=== PATIENT | female | born 1965 | race Caucasian/White ===

== ENCOUNTER → 2017-09-08 | Outpatient (CLI) | payer BC ==
--- NOTE | 2017-09-08 15:15 | MAMMOGRAPHY REPORT ---
BILATERAL DIGITAL SCREENING MAMMOGRAM TOMOSYNTHESIS WITH CAD: 09/08/2017 CLINICAL HISTORY: Routine screening. TECHNIQUE: Breast tomosynthesis in addition to standard 2D mammography was performed. Current study was also evaluated with a Computer Aided Detection (CAD) system. COMPARISON: Comparison is made to exams dated: 09/05/2016 mammogram, 09/03/2015 mammogram, 4 mammogram, 08/29/2013 mammogram, 08/24/2012 mammogram, and 08/21/2011 mammogram - [facility]. BREAST COMPOSITION: The tissue of both breasts is heterogeneously dense, which may obscure small mas ses. FINDINGS: There is stable focal asymmetry in the upper outer quadrant of each breast. No new suspici ous mass, architectural distortion or cluster of microcalcifications is seen. IMPRESSION: ACR BI-RADS CATEGORY 1: NEGATIVE There is no mammographic evidence of malignancy. A 1 year screening mammogram is recommended. The pa tient will receive written notification of the results. Approximately 10% of breast cancers are not detected with mammography. A negative mammographic report should not delay biopsy if a clinically suggestive mass is present. Jade Leslie M.D. ay/:09/08/2017 14:59:33 Project Director: Maximino GATICA(R)(M), [facility] letter sent: Normal 1/2 BI-RADS Code: ACR BI-RADS Category 1: Negative
== END | disposition home or self-care (01) ==
LOC: C.MAMM 08:03
PROVIDERS: ATTEND Obstetrics & Gynecology
DX: Z12.31 Encounter for screening mammogram for malignant neoplasm of breast (principal)

== ENCOUNTER → 2018-02-04 | Outpatient (CLI) | payer BC | END | disposition home or self-care (01) | LOC: C.PAPS 12:28 | PROVIDERS: ATTEND Obstetrics & Gynecology | DX: Z01.411 Encounter for gynecological examination (general) (routine) with abnormal findings (principal); R87.612 Low grade squamous intraepithelial lesion on cytologic smear of cervix (LGSIL) ==

== ENCOUNTER 2018-06-07 07:19 | Inpatient (IN) | payer BC ==
[~2018-06-07] VITALS: Ht 165.1 cm; Wt 83.9 kg
[2018-06-07] MEDS ORDERED: METOCLOPRAMIDE HCL INJ 5 MG/ML 2 ML VIAL IV STA (07:29)
[2018-06-07] MEDS ORDERED: SODIUM CHLORIDE 0.9% 1000ML 1,000 ML IV STA (07:33)
[2018-06-07] MEDS ORDERED: HYDROmorphone INJ 1 MG/ML SYR IV STA (07:33)
--- NOTE | 2018-06-07 07:41 | EMERGENCY ROOM VISIT NOTE ---
History Report prepared by Jalen: Aleksey Love Under the Supervision of: Dr. Efra Morris M.D. First contact with patient: 07:26 Chief Complaint: GI ASSESSMENT Stated Complaint: INTESTINAL/LWR ABD PAIN/CONSTIPATION/FEVER History of Present Illness The patient is a 52 year old female who presents to the Emergency Room with complaints of constant abdominal pain beginning two days ago. The patient states that she has been having abdominal pain on the left that has since moved to her entire abdomen. She notes that she feels like she is constipated. She also complains of a fever and a small amount of blood in her stool. She reports that her fever reached a high of 101. The patient states that she had two very small bowel movements this morning which looked like they contained blood. She rates her pain as a 3/10. She notes that she has been taking ibuprofen for her symptoms, and she reports that she has not had anything since 2300 last night. The patient states that she has a history of hypertension but does not take any medication. She notes that she does not have a past history of diverticulitis and she reports that she still has her gallbladder and appendix. The patient states that she has a family history of hypertension. Source of History: patient Onset: two days ago Position: abdomen Symptom Intensity: 3/10 Timing: constant Associated Symptoms: + fevers Note: The patient also complains of blood in her stool. Review of Systems See HPI for pertinent positives & negatives. A total of 10 systems reviewed and were otherwise negative. Past Medical & Surgical Medical Problems: (1) Diverticulitis (2) Hypertension (3) Mononucleosis Family History No pertinent family history stated. Social History Smoking Status: Current Every Day Smoker Marital Status: Housing Status: lives with family Occupation Status: employed Current/Historical Medications No Active Prescriptions or Reported Meds Allergies Coded Allergies: No Known Allergies (Unverified , 06/07/18) Physical Exam Vital Signs Date Time Temp Pulse Resp B/P (MAP) Pulse Ox O2 Delivery O2 Flow Rate FiO2 06/07/18 13:01 84 20 124/81 97 Room Air 06/07/18 11:10 96 Room Air 06/07/18 10:56 81 16 154/102 96 Room Air 06/07/18 08:50 85 14 147/87 96 Room Air 06/07/18 08:03 92 06/07/18 07:22 37.5 100 18 141/91 96 Room Air Physical Exam GENERAL: Awake, alert, well-appearing, in no acute distress HENT: Normocephalic, atraumatic. Oropharynx unremarkable. EYES: Normal conjunctiva. Sclera non-icteric. NECK: Supple. No nuchal rigidity. FROM. No JVD. RESPIRATORY: Clear to auscultation. CARDIAC: Regular rate, normal rhythm. Extremities warm and well perfused. Pulses equal. ABDOMEN: Soft, non-distended. No rebound or guarding. No masses. Tender in the LLQ. RECTAL: Deferred. MUSCULOSKELETAL: Chest examination reveals no tenderness. The back is symmetrical on inspection without obvious abnormality. There is no CVA tenderness to palpation. No joint edema. LOWER EXTREMITIES: Calves are equal size bilaterally and non-tender. No edema. No discoloration. NEURO: Normal sensorium. No sensory or motor deficits noted. SKIN: No rash or jaundice noted. Medical Decision & Procedures ER Provider Diagnostic Interpretation: Radiology results as stated below per my review and radiologist interpretation: ABDOMEN AND PELVIS CT WITH IV AND ORAL CONTRAST FINDINGS: Mild dependent subsegmental bibasilar atelectasis. Fissural lymph nodes are seen adjacent to the inferior aspect of the right major fissure. Imaged inferior cardiac chambers are unremarkable. Gallbladder, liver, spleen, pancreas and adrenal glands are unremarkable. The kidneys, ureters and bladder are within normal limits. Uterus and adnexa are within normal limits. Aorta and IVC are unremarkable. Patent portal vein. Mildly prominent nonenlarged periaortic lymph nodes measure up to 7 mm in short axis. There is no bowel obstruction. Oral contrast extends to the rectum. There is moderate to marked circumferential wall thickening about the mid sigmoid colon with inflammation about multiple colonic diverticula. Moderate pericolonic inflammation is noted with with thickening of the peritoneal reflections. There are a few scattered foci of extraluminal air within the adjacent sigmoid mesocolon, notably image 378 series 3. No drainable fluid collections. Terminal ileum and visualized appendix appear unremarkable. Soft tissues and breast parenchyma appear unremarkable. Bones appear intact. Moderate intervertebral disc space narrowing with disc osteophyte complex relation at L4-L5. Grade 1 anterolisthesis L5 on S1 with remote bilateral pars defects. IMPRESSION: 1. Acute complicated sigmoid diverticulitis with a few foci of extra luminal air within the adjacent sigmoid mesocolon compatible with microperforation. No drainable fluid collection. 2. No bowel obstruction. 3. Chronic bilateral pars defects at L5 with grade 1 anterolisthesis L5 on S1. Electronically signed by: Escobar Rooney M.D. 06/07/2018 10:15 AM Dictated Date/Time: 06/07/2018 10:08 AM Laboratory Results 06/07/18 07:35 Red Blood Count 5.27, Mean Corpuscular Volume 85.2, Mean Corpuscular Hemoglobin 30.0, Mean Corpuscular Hemoglobin Concent 35.2, Mean Platelet Volume 11.0, Neutrophils (%) (Auto) 88.7, Lymphocytes (%) (Auto) 4.1, Monocytes (%) (Auto) 6.5, Eosinophils (%) (Auto) 0.2, Basophils (%) (Auto) 0.1, Neutrophils # (Auto) 16.80, Lymphocytes # (Auto) 0.78, Monocytes # (Auto) 1.23, Eosinophils # (Auto) 0.03, Basophils # (Auto) 0.01 06/07/18 07:35 Test 06/07/18 07:30 06/07/18 07:35 Urine Color DEB Urine Appearance TURBID (CLEAR) Urine pH 5.5 (4.5-7.5) Urine Specific [place] >= 1.030 (1.000-1.030) Urine Protein 1+ (NEG) Urine Glucose (UA) NEG (NEG) Urine Ketones 2+ (NEG) Urine Occult Blood TRACE (NEG) Urine Nitrite NEG (NEG) Urine Bilirubin NEG (NEG) Urine Urobilinogen NEG (NEG) Urine Leukocyte Esterase NEG (NEG) Urine RBC 0-4 /hpf (0-4) Urine WBC 1-5 /hpf (0-5) Urine Epithelial Cells >30 /lpf (0-5) Urine Amorphous Sediment PRESENT (NONE PRSENT) Urine Bacteria NEG (NEG) Urine Mucus PRESENT (NONE PRSENT) White Blood Count 18.93 K/uL (4.8-10.8) Red Blood Count 5.27 M/uL (4.2-5.4) Hemoglobin 15.8 g/dL (12.0-16.0) Hematocrit 44.9 % (37-47) Mean Corpuscular Volume 85.2 fL (80-100) Mean Corpuscular Hemoglobin 30.0 pg (25-34) Mean Corpuscular Hemoglobin Concent 35.2 g/dl (32-36) Platelet Count 212 K/uL (130-400) Mean Platelet Volume 11.0 fL (7.4-10.4) Neutrophils (%) (Auto) 88.7 % Lymphocytes (%) (Auto) 4.1 % Monocytes (%) (Auto) 6.5 % Eosinophils (%) (Auto) 0.2 % Basophils (%) (Auto) 0.1 % Neutrophils # (Auto) 16.80 K/uL (1.4-6.5) Lymphocytes # (Auto) 0.78 K/uL (1.2-3.4) Monocytes # (Auto) 1.23 K/uL (0.11-0.59) Eosinophils # (Auto) 0.03 K/uL (0-0.5) Basophils # (Auto) 0.01 K/uL (0-0.2) RDW Standard Deviation 41.4 fL (36.4-46.3) RDW Coefficient of Variation 13.2 % (11.5-14.5) Immature Granulocyte % (Auto) 0.4 % Immature Granulocyte # (Auto) 0.08 K/uL (0.00-0.02) Anion Gap 8.0 mmol/L (3-11) Est Creatinine Clear Calc Drug Dose 90.2 ml/min Estimated GFR () 101.3 Estimated GFR (Non- 87.4 BUN/Creatinine Ratio 14.2 (10-20) Calcium Level 9.1 mg/dl (8.5-10.1) Total Bilirubin 1.4 mg/dl (0.2-1) Direct Bilirubin 0.5 mg/dl (0-0.2) Aspartate Amino Transf (AST/SGOT) 14 U/L (15-37) Alanine Aminotransferase (ALT/SGPT) 29 U/L (12-78) Alkaline Phosphatase 70 U/L (45-117) Total Protein 7.6 gm/dl (6.4-8.2) Albumin 3.4 gm/dl (3.4-5.0) Lipase 59 U/L (73-393) Labs reviewed by ED physician. Medications Administered Medications (Trade) Dose Ordered Sig/Lalito Route Start Time Stop Time Status Last Admin Dose Admin Metoclopramide HCl (Reglan Inj) 10 mg NOW STAT IV 06/07/18 07:29 06/07/18 07:31 DC 06/07/18 07:29 10 MG Sodium Chloride 1,000 ml @ 999 mls/hr Q1H1M STAT IV 06/07/18 07:33 06/07/18 08:33 DC 06/07/18 07:33 999 MLS/HR Hydromorphone HCl (Dilaudid Inj) 1 mg NOW STAT IV 06/07/18 07:33 06/07/18 07:34 DC 06/07/18 07:33 1 MG Ciprofloxacin/ Dextrose (Cipro / D5W) 400 mg NOW STAT IV 06/07/18 10:18 06/07/18 10:20 DC 06/07/18 10:18 400 MG Metronidazole (Flagyl / Nss) 500 mg NOW STAT IV 06/07/18 10:18 06/07/18 10:20 DC 06/07/18 10:18 500 MG ED Course 0726: Past medical records reviewed. The patient was evaluated in room A10. A complete history and physical examination was performed. 0805: I reevaluated and updated the patient. 0904: I rechecked the patient. 1021: I reevaluated and updated the patient. 1045: Upon reexamination the patient is stable. I discussed results and treatment plan with the patient. She verbalizes agreement and understanding. I spoke with Dr. Kidd from the [facility] Hospitalist Service. The patient will be evaluated for further management. 1100: I discussed the patient's case with Himanshu Thakkar. Medical Decision Differential diagnosis: Etiologies such as appendicitis, diverticulitis, PUD, biliary pathology, UTI, pancreatitis, obstruction, mesenteric ischemia, aortic pathology, infections, inflammatory bowel disease, renal colic, as well as others were entertained. This is a 52-year-old female who presents emergency department complaining of left lower quadrant abdominal pain she does have an elevation in her white blood cell count of 18,000. CT the abdomen pelvis is concerning for perforated diverticulitis. Patient was given Reglan as well as Dilaudid here in the emergency department. Serial abdominal examinations were performed on the patient in the emergency department and at no time to the patient exhibited surgical abdomen. The patient was started on IV Cipro as well as Flagyl. I discussed the case with surgery as well as the medicine service. Patient and family were in agreement with the treatment plan. Medication Reconcilliation Current Medication List: was personally reviewed by me Blood Pressure Screening Patient's blood pressure: Elevated blood pressure Elevated blood pressure will be monitored by hospitalist. Consults Time Called: 1020 Consulting Physician: Dr. Kidd - Hospitalist, [facility] Returned Call: 1045 I discussed the patient's case with Dr. Kidd, she has agreed to evaluate the patient for further management and care. Additional Consults: Time Called: 1057 Consulted Physician: Himanshu Martin PA-C, General Surgery, [facility] Returned Call: 1100 Additional Comments: I discussed the patient's case with Himanshu Thakkar. Impression Primary Impression: Diverticulitis Scribe Attestation The scribe's documentation has been prepared under my direction and personally reviewed by me in its entirety. I confirm that the note above accurately reflects all work, treatment, procedures, and medical decision making performed by me. Departure Information Dispostion Being Evaluated By Hospitalist Prescriptions No Active Prescriptions or Reported Meds Referrals No Doctor, Assigned (PCP) Patient Instructions My [facility]
[2018-06-07] MEDS ORDERED: OPTIRAY 320 IV PRN (07:45)
[2018-06-07 07:50] LABS: BASO % 0.1 %; BASO ABS # 0.01 K/uL (0-0.2); EOS % 0.2 %; EOS ABS # 0.03 K/uL (0-0.5); HEMATOCRIT 44.9 % (37-47); HEMOGLOBIN 15.8 g/dL (12.0-16.0); IG# 0.08 K/uL (0.00-0.02); LYMPH % 4.1 %; LYMPH ABS # 0.78 K/uL (1.2-3.4); MEAN CELL VOLUME 85.2 fL (80-100); MEAN CORPUSCULAR HGB CONC 35.2 g/dl (32-36); MONO % 6.5 %; MONO ABS # 1.23 K/uL (0.11-0.59); NEUT % 88.7 %; PLATELET COUNT 212 K/uL (130-400); RED CELL DISTRIBUTION WIDTH CV 13.2 % (11.5-14.5); RED CELL DISTRIBUTION WIDTH SD 41.4 fL (36.4-46.3); WHITE BLOOD COUNT 18.93 K/uL (4.8-10.8)
[2018-06-07 08:10] LABS: ALBUMIN 3.4 gm/dl (3.4-5.0); CALCIUM 9.1 mg/dl (8.5-10.1); CREATININE 0.78 mg/dl (0.60-1.20); TOTAL PROTEIN 7.6 gm/dl (6.4-8.2)
--- NOTE | 2018-06-07 10:16 | DIAGNOSTIC IMAGING REPORT ---
ABDOMEN AND PELVIS CT WITH IV AND ORAL CONTRAST CT DOSE: 764.41 mGy.cm HISTORY: Acute left lower quadrant abdominal pain Pt c/o LLQ abd pain TECHNIQUE: Multiaxial CT images of the abdomen and pelvis were performed following the use of intravenous and oral contrast. A dose lowering technique was utilized adhering to the principles of ALARA. COMPARISON STUDY: None. FINDINGS: Mild dependent subsegmental bibasilar atelectasis. Fissural lymph nodes are seen adjacent to the inferior aspect of the right major fissure. Imaged inferior cardiac chambers are unremarkable. Gallbladder, liver, spleen, pancreas and adrenal glands are unremarkable. The kidneys, ureters and bladder are within normal limits. Uterus and adnexa are within normal limits. Aorta and IVC are unremarkable. Patent portal vein. Mildly prominent nonenlarged periaortic lymph nodes measure up to 7 mm in short axis. There is no bowel obstruction. Oral contrast extends to the rectum. There is moderate to marked circumferential wall thickening about the mid sigmoid colon with inflammation about multiple colonic diverticula. Moderate pericolonic inflammation is noted with with thickening of the peritoneal reflections. There are a few scattered foci of extraluminal air within the adjacent sigmoid mesocolon, notably image 378 series 3. No drainable fluid collections. Terminal ileum and visualized appendix appear unremarkable. Soft tissues and breast parenchyma appear unremarkable. Bones appear intact. Moderate intervertebral disc space narrowing with disc osteophyte complex relation at L4-L5. Grade 1 anterolisthesis L5 on S1 with remote bilateral pars defects. IMPRESSION: 1. Acute complicated sigmoid diverticulitis with a few foci of extra luminal air within the adjacent sigmoid mesocolon compatible with microperforation. No drainable fluid collection. 2. No bowel obstruction. 3. Chronic bilateral pars defects at L5 with grade 1 anterolisthesis L5 on S1. Electronically signed by: Escobar Rooney M.D. 06/07/2018 10:15 AM Dictated Date/Time: 06/07/2018 10:08 AM
[2018-06-07] MEDS ORDERED: CIPROFLOXACIN 400MG / 200ML D5W IV STA (10:18)
[2018-06-07] MEDS ORDERED: METRONIDAZOLE 500MG / 100ML NSS IV STA (10:18)
[2018-06-07 11:10] VITALS: O2SAT 96; Ht 165.1 cm; Wt 83.9 kg
[2018-06-07] MEDS ORDERED: MAGNESIUM HYDROXIDE SUSP 30 ML UDC PO PRN (11:15)
[2018-06-07] MEDS ORDERED: MoRPHine SULFATE 2 MG/ML CARP IV PRN (11:15)
[2018-06-07] MEDS ORDERED: ONDANSETRON INJ 2 MG/ML 2 ML VIAL IV PRN (11:15)
[2018-06-07] MEDS ORDERED: ACETAMINOPHEN 325 MG TAB PO PRN (11:15)
--- NOTE | 2018-06-07 11:21 | History and Physical ---
History & Physical Date & Time of Service: Jun 07, 2018 at 11:12 Chief Complaint: Intestinal/Lwr Abd Pain/Constipation/Fever Primary Care Physician: Lizzie Driver C.R.NAaliyahP History of Present Illness Source: patient 52 y/o F c/o abd pain. Pt states she started having LLQ abd pain on Thursday. It continued to worsen over the last few days and has moved to her entire lower abd. It does not radiate to the back. She has passed a few small pieces of stool, but her last regular bowel movement was on Thursday. No n/v. She has taken some PO, but has had no appetite due to the abd pain. She has never had pain like this prior. Nothing was helping her pain so she came to the ED. She tried taking ibuprofen without effect. Pt denies fever, SOB, chest pain, LE pain or swelling. She does feel bloated. She did note a small amount of blood in the small pieces of stool passed. Pt was given cipro/flagyl, IVF, and pain medications in the ED. She is still having pain, but it is overall improved. Past Medical/Surgical History Medical Problems: (1) Diverticulitis (2) Hypertension (3) Mononucleosis Social History Smoking Status: Current Every Day Smoker (5-6 cigs/day, maybe 2/day during this acute illness) Alcohol Use: occasionally (1-2 times per week) Drug Use: none Marital Status: Occupational Status: employed Allergies Coded Allergies: No Known Allergies (Unverified , 06/07/18) Home Medications No Active Prescriptions or Reported Meds Review of Systems Pertinent positives and negatives reviewed in HPI--all others negative Physical Exam Vital Signs Date Time Temp Pulse Resp B/P (MAP) Pulse Ox O2 Delivery O2 Flow Rate FiO2 06/07/18 10:56 81 16 154/102 96 Room Air 06/07/18 08:50 85 14 147/87 96 Room Air 06/07/18 08:03 92 06/07/18 07:22 37.5 100 18 141/91 96 Room Air General Appearance: WD/WN, no apparent distress Head: normocephalic, atraumatic Eyes: normal inspection, sclerae normal Respiratory/Chest: normal breath sounds, no respiratory distress Cardiovascular: regular rate, rhythm, no edema Abdomen/GI: soft, + tenderness (lower abd), + distended Extremities/Musculoskelatal: no calf tenderness, no pedal edema Neurologic/Psych: alert, normal mood/affect, oriented x 3 Skin: normal color, warm/dry Diagnostics Laboratory Results Results Past 24 Hours Test 06/07/18 07:30 06/07/18 07:35 Range/Units Urine Color DEB Urine Appearance TURBID CLEAR Urine pH 5.5 4.5-7.5 Urine Specific [place] >= 1.030 1.000-1.030 Urine Protein 1+ NEG Urine Glucose (UA) NEG NEG Urine Ketones 2+ NEG Urine Occult Blood TRACE NEG Urine Nitrite NEG NEG Urine Bilirubin NEG NEG Urine Urobilinogen NEG NEG Urine Leukocyte Esterase NEG NEG Urine RBC 0-4 0-4 /hpf Urine WBC 1-5 0-5 /hpf Urine Epithelial Cells >30 0-5 /lpf Urine Amorphous Sediment PRESENT NONE PRSENT Urine Bacteria NEG NEG Urine Mucus PRESENT NONE PRSENT White Blood Count 18.93 4.8-10.8 K/uL Red Blood Count 5.27 4.2-5.4 M/uL Hemoglobin 15.8 12.0-16.0 g/dL Hematocrit 44.9 37-47 % Mean Corpuscular Volume 85.2 80-100 fL Mean Corpuscular Hemoglobin 30.0 25-34 pg Mean Corpuscular Hemoglobin Concent 35.2 32-36 g/dl Platelet Count 212 130-400 K/uL Mean Platelet Volume 11.0 7.4-10.4 fL Neutrophils (%) (Auto) 88.7 % Lymphocytes (%) (Auto) 4.1 % Monocytes (%) (Auto) 6.5 % Eosinophils (%) (Auto) 0.2 % Basophils (%) (Auto) 0.1 % Neutrophils # (Auto) 16.80 1.4-6.5 K/uL Lymphocytes # (Auto) 0.78 1.2-3.4 K/uL Monocytes # (Auto) 1.23 0.11-0.59 K/uL Eosinophils # (Auto) 0.03 0-0.5 K/uL Basophils # (Auto) 0.01 0-0.2 K/uL RDW Standard Deviation 41.4 36.4-46.3 fL RDW Coefficient of Variation 13.2 11.5-14.5 % Immature Granulocyte % (Auto) 0.4 % Immature Granulocyte # (Auto) 0.08 0.00-0.02 K/uL Sodium Level 135 136-145 mmol/L Potassium Level 4.0 3.5-5.1 mmol/L Chloride Level 103 98-107 mmol/L Carbon Dioxide Level 24 21-32 mmol/L Anion Gap 8.0 3-11 mmol/L Blood Urea Nitrogen 11 7-18 mg/dl Creatinine 0.78 0.60-1.20 mg/dl Est Creatinine Clear Calc Drug Dose 90.2 ml/min Estimated GFR () 101.3 Estimated GFR (Non- 87.4 BUN/Creatinine Ratio 14.2 10-20 Random Glucose 123 70-99 mg/dl Calcium Level 9.1 8.5-10.1 mg/dl Total Bilirubin 1.4 0.2-1 mg/dl Direct Bilirubin 0.5 0-0.2 mg/dl Aspartate Amino Transf (AST/SGOT) 14 15-37 U/L Alanine Aminotransferase (ALT/SGPT) 29 12-78 U/L Alkaline Phosphatase 70 45-117 U/L Total Protein 7.6 6.4-8.2 gm/dl Albumin 3.4 3.4-5.0 gm/dl Lipase 59 73-393 U/L Diagnostic Radiology CT AP: 1. Acute complicated sigmoid diverticulitis with a few foci of extra luminal air within the adjacent sigmoid mesocolon compatible with microperforation. No drainable fluid collection. 2. No bowel obstruction. 3. Chronic bilateral pars defects at L5 with grade 1 anterolisthesis L5 on S1. Impression Assessment and Plan 52 y/o F who was admitted on 06/07 for acute diverticulitis Diverticulitis: no prior hx Noted to have microperf on CT AP Surgery c/s pending Cipro/flagyl, IVF NPO with sips WBC elevated, afebrile ?? HTN: States BP was elevated on an acute visit to PCP in January for flu, but did not f/u for recheck Monitor during admission Tobacco use: declines nicotine patch, available PRN Working towards cessation Other: Full code SCDs and ambulation for DVT proph given some blood in stool NPO with IVF Resuscitation Status VTE Prophylaxis Will order VTE Prophylaxis: Yes
[2018-06-07] MEDS ORDERED: MoRPHine SULFATE 2 MG/ML CARP ONE (11:54)
--- NOTE | 2018-06-07 11:57 | Medical Consult ---
Consultation Date of Consultation: Jun 07, 2018. Attending Physician: Reason for Consultation: Diverticulitis History of Present Illness Ms. Díaz is a 52-year-old female with past medical history significant for hypertension presents to [facility] ED for evaluation of abdominal pain that began in left lower quadrant x 2 days. She states that pain began early Thursday morning in her lower abdomen and has continued to worsen over the past couple of days. Ibuprofen did not help with pain. Pain is currently located across lower abdomen into both right and left lower quadrants. She reports that she has never had this type of pain before. She denies fever or chills. Denies nausea or vomiting. Denies constipation or diarrhea. States that her last "normal" bowl movement was Thursday, but has passed small amounts of stool throughout the weekend. Reports that she may have seen small amount of blood in stool. No history of hemorrhoids. Patient denies surgical history. Denies having colonoscopy. ED course: Vitals- 37.5; Pulse 81; Respirations 16; BP 154/102 WBC elevated at 18.93 CT scan w/ IV and PO contrast 1. Acute complicated sigmoid diverticulitis with a few foci of extra luminal air within the adjacent sigmoid mesocolon compatible with microperforation. No drainable fluid collection. 2. No bowel obstruction. Social History Smoking Status: Current Every Day Smoker (5-6 cigs/day, maybe 2/day during this acute illness) Alcohol Use: occasionally (1-2 times per week) Drug Use: none Marital Status: Housing Status: lives with family Occupation Status: employed Allergies Coded Allergies: No Known Allergies (Unverified , 06/07/18) Current Inpatient Medications Current Inpatient Medications Medications (Trade) Dose Ordered Sig/Lalito Route Start Time Stop Time Status Last Admin Dose Admin Ioversol (Optiray 320) 100 ml UD PRN IV 06/07/18 07:45 06/11/18 07:44 Acetaminophen (Tylenol Tab) 650 mg Q4H PRN PO 06/07/18 11:15 07/07/18 11:14 UNV Magnesium Hydroxide (Milk Of Magnesia Susp) 30 ml Q6H PRN PO 06/07/18 11:15 07/07/18 11:14 UNV Ondansetron HCl (Zofran Inj) 4 mg Q6H PRN IV 06/07/18 11:15 07/07/18 11:14 UNV Ciprofloxacin/ Dextrose 400 mg/ Prmx 200 ml @ 100 mls/hr Q12 IV 06/07/18 21:00 06/17/18 20:59 UNV Metronidazole 500 mg/Prmx 100 ml @ 100 mls/hr Q8H IV 06/07/18 11:15 06/17/18 11:14 UNV Dextrose/Sodium Chloride 1,000 ml @ 125 mls/hr Q8H IV 06/07/18 11:15 07/07/18 11:14 UNV Nicotine (Nicoderm Cq 7 Mg Patch) 1 patch QAM PRN TD 06/07/18 11:15 07/07/18 11:14 UNV Miscellaneous (Remove Nicoderm Patch) 1 ea HS N/A 06/07/18 21:00 07/07/18 20:59 UNV Morphine Sulfate (MoRPHine SULFATE INJ) 0.5 mg Q6H PRN IV 06/07/18 11:15 06/21/18 11:14 UNV Ketorolac Tromethamine (Toradol Inj) 30 mg Q6H PRN IV 06/07/18 11:15 06/12/18 11:14 UNV Review of Systems Constitutional: No fever, No chills Abdomen: + pain, No nausea, No vomiting, No diarrhea, No constipation Physical Exam Date Time Temp Pulse Resp B/P (MAP) Pulse Ox O2 Delivery O2 Flow Rate FiO2 06/07/18 11:10 96 Room Air 06/07/18 10:56 81 16 154/102 96 Room Air 06/07/18 08:50 85 14 147/87 96 Room Air 06/07/18 08:03 92 06/07/18 07:22 37.5 100 18 141/91 96 Room Air General Appearance: WD/WN, no apparent distress Head: normocephalic, atraumatic Abdomen/GI: + tenderness (across both right and left lower quadrants- states that the bulk of the pain is in left lower quadrant. ), + distended (mild) Laboratory Results Last 24 Hours Test 06/07/18 07:30 06/07/18 07:35 Urine Color DEB Urine Appearance TURBID Urine pH 5.5 Urine Specific [place] >= 1.030 Urine Protein 1+ Urine Glucose (UA) NEG Urine Ketones 2+ Urine Occult Blood TRACE Urine Nitrite NEG Urine Bilirubin NEG Urine Urobilinogen NEG Urine Leukocyte Esterase NEG Urine RBC 0-4 /hpf Urine WBC 1-5 /hpf Urine Epithelial Cells >30 /lpf Urine Amorphous Sediment PRESENT Urine Bacteria NEG Urine Mucus PRESENT White Blood Count 18.93 K/uL Red Blood Count 5.27 M/uL Hemoglobin 15.8 g/dL Hematocrit 44.9 % Mean Corpuscular Volume 85.2 fL Mean Corpuscular Hemoglobin 30.0 pg Mean Corpuscular Hemoglobin Concent 35.2 g/dl Platelet Count 212 K/uL Mean Platelet Volume 11.0 fL Neutrophils (%) (Auto) 88.7 % Lymphocytes (%) (Auto) 4.1 % Monocytes (%) (Auto) 6.5 % Eosinophils (%) (Auto) 0.2 % Basophils (%) (Auto) 0.1 % Neutrophils # (Auto) 16.80 K/uL Lymphocytes # (Auto) 0.78 K/uL Monocytes # (Auto) 1.23 K/uL Eosinophils # (Auto) 0.03 K/uL Basophils # (Auto) 0.01 K/uL RDW Standard Deviation 41.4 fL RDW Coefficient of Variation 13.2 % Immature Granulocyte % (Auto) 0.4 % Immature Granulocyte # (Auto) 0.08 K/uL Sodium Level 135 mmol/L Potassium Level 4.0 mmol/L Chloride Level 103 mmol/L Carbon Dioxide Level 24 mmol/L Anion Gap 8.0 mmol/L Blood Urea Nitrogen 11 mg/dl Creatinine 0.78 mg/dl Est Creatinine Clear Calc Drug Dose 90.2 ml/min Estimated GFR () 101.3 Estimated GFR (Non- 87.4 BUN/Creatinine Ratio 14.2 Random Glucose 123 mg/dl Calcium Level 9.1 mg/dl Total Bilirubin 1.4 mg/dl Direct Bilirubin 0.5 mg/dl Aspartate Amino Transf (AST/SGOT) 14 U/L Alanine Aminotransferase (ALT/SGPT) 29 U/L Alkaline Phosphatase 70 U/L Total Protein 7.6 gm/dl Albumin 3.4 gm/dl Lipase 59 U/L CT scan with IV and PO contrast 1. Acute complicated sigmoid diverticulitis with a few foci of extra luminal air within the adjacent sigmoid mesocolon compatible with microperforation. No drainable fluid collection. 2. No bowel obstruction. 3. Chronic bilateral pars defects at L5 with grade 1 anterolisthesis L5 on S1. Assessment & Plan 52-year-old female with left lower quadrant abdominal pain x 2 days. Imaging and bloodwork reviewed- CT scan shows evidence of acute diverticulitis with microperf. This is patient's first episode of diverticulitis - reports that she has never had colonoscopy. No emergent surgical intervention required at this time. Discussed with patient need for outpatient colonoscopy roughly 6-8 weeks after acute episode has resolved. Patient to be admitted by Hospitalist team for medical management- IV abx, pain medication, fluids per primary team Patient NPO except sips and chips. General surgery will continue to follow.
[2018-06-07 13:33] VITALS: BP 136/88; PULSE 82; TEMP 36.9; O2SAT 99
[2018-06-07] MEDS ORDERED: NICOTINE 7 MG/24 HR TDSY TD PRN (13:45)
[2018-06-07] MEDS: D5W AND 1/2NSS 1,000 ML IV SCH ×2 (14:13→21:54)
[2018-06-07 15:51] VITALS: BP 127/87; PULSE 89; TEMP 36.5; O2SAT 98
[2018-06-07 16:00] VITALS: O2SAT 98
[2018-06-07] MEDS: METRONIDAZOLE / NSS 500 MG in PREMIXED NSS 100 ML IV SCH (17:39)
[2018-06-07] MEDS: KETOROLAC TROMETHAMINE 30 MG/ML VIAL IV PRN (21:03)
[2018-06-07] MEDS: CIPROFLOXACIN / D5W 400 MG in PREMIXED IN D5W 200 ML IV SCH (21:54)
[2018-06-08] VITALS: BP 129/85; PULSE 67; TEMP 36.8; O2SAT 97
[2018-06-08] MEDS: METRONIDAZOLE / NSS 500 MG in PREMIXED NSS 100 ML IV SCH ×3 (02:08→17:57)
[2018-06-08] MEDS: D5W AND 1/2NSS 1,000 ML IV SCH ×4 (05:56→21:45)
[2018-06-08] MEDS: KETOROLAC TROMETHAMINE 30 MG/ML VIAL IV PRN (06:42)
[2018-06-08 06:46] LABS: HEMATOCRIT 38.6 % (37-47); HEMOGLOBIN 13.2 g/dL (12.0-16.0); MEAN CELL VOLUME 86.7 fL (80-100); MEAN CORPUSCULAR HEMOGLOBIN 29.7 pg (25-34); MEAN CORPUSCULAR HGB CONC 34.2 g/dl (32-36); MEAN PLATELET VOLUME 10.9 fL (7.4-10.4); PLATELET COUNT 181 K/uL (130-400); RED CELL DISTRIBUTION WIDTH CV 13.1 % (11.5-14.5); WHITE BLOOD COUNT 7.61 K/uL (4.8-10.8)
--- NOTE | 2018-06-08 07:11 | Surgery Progress Note ---
Surgery Progress Note Date of Service Jun 08, 2018. Subjective + feeling well, + ambulating, + bowel movement, + flatus, + pain controlled, + diet (Tolerating clears), No complaints, No nausea, No vomiting Objective Vital Signs: Date Time Temp Pulse Resp B/P (MAP) Pulse Ox O2 Delivery O2 Flow Rate FiO2 06/08/18 00:00 Room Air 06/08/18 00:00 36.8 67 20 129/85 (100) 97 Room Air 06/07/18 16:00 98 Room Air 06/07/18 15:51 36.5 89 18 127/87 (100) 98 Room Air 06/07/18 13:33 36.9 82 18 136/88 (104) 99 Room Air 06/07/18 13:01 84 20 124/81 97 Room Air 06/07/18 11:10 96 Room Air 06/07/18 10:56 81 16 154/102 96 Room Air 06/07/18 08:50 85 14 147/87 96 Room Air 06/07/18 08:03 92 06/07/18 07:22 37.5 100 18 141/91 96 Room Air General Appearance: no apparent distress Head: normocephalic, atraumatic Respiratory/Chest: no respiratory distress Abdomen: non distended, soft, no organomegaly, + tenderness (LLQ improving) Laboratory Results: Results Past 24 Hours Test 06/07/18 07:30 06/07/18 07:35 06/08/18 06:01 Range/Units Urine Color DEB Urine Appearance TURBID CLEAR Urine pH 5.5 4.5-7.5 Urine Specific [place] >= 1.030 1.000-1.030 Urine Protein 1+ NEG Urine Glucose (UA) NEG NEG Urine Ketones 2+ NEG Urine Occult Blood TRACE NEG Urine Nitrite NEG NEG Urine Bilirubin NEG NEG Urine Urobilinogen NEG NEG Urine Leukocyte Esterase NEG NEG Urine RBC 0-4 0-4 /hpf Urine WBC 1-5 0-5 /hpf Urine Epithelial Cells >30 0-5 /lpf Urine Amorphous Sediment PRESENT NONE PRSENT Urine Bacteria NEG NEG Urine Mucus PRESENT NONE PRSENT White Blood Count 18.93 7.61 4.8-10.8 K/uL Red Blood Count 5.27 4.45 4.2-5.4 M/uL Hemoglobin 15.8 13.2 12.0-16.0 g/dL Hematocrit 44.9 38.6 37-47 % Mean Corpuscular Volume 85.2 86.7 80-100 fL Mean Corpuscular Hemoglobin 30.0 29.7 25-34 pg Mean Corpuscular Hemoglobin Concent 35.2 34.2 32-36 g/dl Platelet Count 212 181 130-400 K/uL Mean Platelet Volume 11.0 10.9 7.4-10.4 fL Neutrophils (%) (Auto) 88.7 % Lymphocytes (%) (Auto) 4.1 % Monocytes (%) (Auto) 6.5 % Eosinophils (%) (Auto) 0.2 % Basophils (%) (Auto) 0.1 % Neutrophils # (Auto) 16.80 1.4-6.5 K/uL Lymphocytes # (Auto) 0.78 1.2-3.4 K/uL Monocytes # (Auto) 1.23 0.11-0.59 K/uL Eosinophils # (Auto) 0.03 0-0.5 K/uL Basophils # (Auto) 0.01 0-0.2 K/uL RDW Standard Deviation 41.4 42.0 36.4-46.3 fL RDW Coefficient of Variation 13.2 13.1 11.5-14.5 % Immature Granulocyte % (Auto) 0.4 % Immature Granulocyte # (Auto) 0.08 0.00-0.02 K/uL Sodium Level 135 136-145 mmol/L Potassium Level 4.0 3.5-5.1 mmol/L Chloride Level 103 98-107 mmol/L Carbon Dioxide Level 24 21-32 mmol/L Anion Gap 8.0 3-11 mmol/L Blood Urea Nitrogen 11 7-18 mg/dl Creatinine 0.78 0.60-1.20 mg/dl Est Creatinine Clear Calc Drug Dose 90.2 ml/min Estimated GFR () 101.3 Estimated GFR (Non- 87.4 BUN/Creatinine Ratio 14.2 10-20 Random Glucose 123 70-99 mg/dl Calcium Level 9.1 8.5-10.1 mg/dl Total Bilirubin 1.4 0.2-1 mg/dl Direct Bilirubin 0.5 0-0.2 mg/dl Aspartate Amino Transf (AST/SGOT) 14 15-37 U/L Alanine Aminotransferase (ALT/SGPT) 29 12-78 U/L Alkaline Phosphatase 70 45-117 U/L Total Protein 7.6 6.4-8.2 gm/dl Albumin 3.4 3.4-5.0 gm/dl Lipase 59 73-393 U/L Assessment & Plan acute diverticulitis w/ microperf. Abdomen soft, non-distended, mild TTP - improving. Tolerating clears, no N/ V. afebrile. WBC WNL this AM. Keep clears this AM. Can advance for lunch if she continues to do well. Continue IV Abx. Possible d/c tomorrow if she continues to do well w/ cipro/flagyl. Patient will need outpatient colonoscopy in approximately 6-8 weeks following resolution. Will continue to follow.
[2018-06-08 07:26] LABS: CREATININE 0.72 mg/dl (0.60-1.20); POTASSIUM 3.3 mmol/L (3.5-5.1)
[2018-06-08 07:45] VITALS: BP 134/85; PULSE 70; TEMP 36.4; O2SAT 93
--- NOTE | 2018-06-08 08:08 | Hospitalist Progress Note ---
Hospitalist Progress Note Date of Service Jun 08, 2018. Subjective Pt evaluation today including: conversation w/ patient, physical exam, chart review, lab review, review of studies, review of inpatient medication list Patient seen and evaluated. No acute events overnight. Patient is tolerating an advanced diet. Still has some tenderness in the lower quadrants but is manageable. Still with liquid stool. She is afebrile and leukocytosis is resolved. Constitutional: No fever, No chills Respiratory: No cough, No shortness of breath Cardiovascular: No chest pain Abdomen: + pain (lower quadrants), + diarrhea, No nausea, No vomiting, No GI bleeding Female : No dysuria Heme: No abnormal bleeding/bruising Skin: No rash Medications Current Inpatient Medications Medications (Trade) Dose Ordered Sig/Lalito Route Start Time Stop Time Status Last Admin Dose Admin Ioversol (Optiray 320) 100 ml UD PRN IV 06/07/18 07:45 06/11/18 07:44 Acetaminophen (Tylenol Tab) 650 mg Q4H PRN PO 06/07/18 11:15 07/07/18 11:14 Magnesium Hydroxide (Milk Of Magnesia Susp) 30 ml Q6H PRN PO 06/07/18 11:15 07/07/18 11:14 Ondansetron HCl (Zofran Inj) 4 mg Q6H PRN IV 06/07/18 11:15 07/07/18 11:14 Ciprofloxacin/ Dextrose 400 mg/ Prmx 200 ml @ 100 mls/hr Q12H IV 06/07/18 22:00 06/17/18 21:59 06/08/18 09:31 100 MLS/HR Metronidazole 500 mg/Prmx 100 ml @ 100 mls/hr Q8H IV 06/07/18 18:00 06/17/18 17:59 06/08/18 09:31 100 MLS/HR Dextrose/Sodium Chloride 1,000 ml @ 125 mls/hr Q8H IV 06/07/18 13:45 07/07/18 13:44 06/08/18 05:56 125 MLS/HR Nicotine (Nicoderm Cq 7 Mg Patch) 1 patch QAM PRN TD 06/07/18 13:45 07/07/18 13:44 Miscellaneous (Remove Nicoderm Patch) 1 ea HS N/A 06/07/18 21:00 07/07/18 20:59 Morphine Sulfate (MoRPHine SULFATE INJ) 0.5 mg Q6H PRN IV 06/07/18 11:15 06/21/18 11:14 Ketorolac Tromethamine (Toradol Inj) 30 mg Q6H PRN IV 06/07/18 11:15 06/12/18 11:14 06/08/18 06:42 30 MG Objective Vital Signs Date Time Temp Pulse Resp B/P (MAP) Pulse Ox O2 Delivery O2 Flow Rate FiO2 06/08/18 07:45 36.4 70 18 134/85 (101) 93 Room Air 06/08/18 00:00 Room Air 06/08/18 00:00 36.8 67 20 129/85 (100) 97 Room Air 06/07/18 16:00 98 Room Air 06/07/18 15:51 36.5 89 18 127/87 (100) 98 Room Air 06/07/18 13:33 36.9 82 18 136/88 (104) 99 Room Air 06/07/18 13:01 84 20 124/81 97 Room Air 06/07/18 11:10 96 Room Air 06/07/18 10:56 81 16 154/102 96 Room Air 06/07/18 08:50 85 14 147/87 96 Room Air Physical Exam General Appearance: WD/WN, no apparent distress Eyes: sclerae normal ENT: hearing grossly normal Neck: supple, no JVD, trachea midline Respiratory/Chest: lungs clear, normal breath sounds, no respiratory distress, no accessory muscle use Cardiovascular: regular rate, rhythm, no gallop, no murmur Abdomen: normal bowel sounds, soft, + tenderness (b/l lower quadrants with L > R; no guarding or rigidity, no acute abdomen) Extremities: no pedal edema Neurologic/Psychiatric: alert, oriented x 3 Skin: normal color, warm/dry Laboratory Results Last 24 Hours Test 06/08/18 06:01 White Blood Count 7.61 K/uL Red Blood Count 4.45 M/uL Hemoglobin 13.2 g/dL Hematocrit 38.6 % Mean Corpuscular Volume 86.7 fL Mean Corpuscular Hemoglobin 29.7 pg Mean Corpuscular Hemoglobin Concent 34.2 g/dl RDW Standard Deviation 42.0 fL RDW Coefficient of Variation 13.1 % Platelet Count 181 K/uL Mean Platelet Volume 10.9 fL Sodium Level 140 mmol/L Potassium Level 3.3 mmol/L Chloride Level 107 mmol/L Carbon Dioxide Level 28 mmol/L Anion Gap 5.0 mmol/L Blood Urea Nitrogen 7 mg/dl Creatinine 0.72 mg/dl Est Creatinine Clear Calc Drug Dose 97.8 ml/min Estimated GFR () 111.6 Estimated GFR (Non- 96.3 BUN/Creatinine Ratio 9.1 Random Glucose 104 mg/dl Calcium Level 8.0 mg/dl Assessment and Plan 52 y/o F who was admitted on 06/07 for acute diverticulitis Acute Sigmoid Diverticulitis with Microperf: - Ciprofloxacin 400 mg IV BID and Flagyl 500 mg IV Q8H - once diet is further advanced and tolerated can convert to po - Remains afebrile and leukocytosis is resolved - Gen Surg following - conservative measures at this time - recommending colonoscopy in 6-8 weeks pending resolution HTN: - Reports BP elevations as outpatient while ill with flu but hasn't had follow- up - BP has improved since admission - will continue to monitor and would recommend outpatient monitoring and can defer to PCP at this time Tobacco Use: - Nicotine PRN; working towards cessation and will continue to encourage DVT Prophylaxis: SCDs Code Status: FULL RESUSCITATION Disposition: Continue Abx and advance diet; possible D/C tomorrow Continued [facility] stay due to: multiple IV medications needed Discharge planning: home
[2018-06-08] MEDS ORDERED: POTASSIUM CHLORIDE 20 MEQ TABCR PO ONE (09:00)
[2018-06-08] MEDS: CIPROFLOXACIN / D5W 400 MG in PREMIXED IN D5W 200 ML IV SCH ×2 (09:31→21:53)
[2018-06-08 15:30] VITALS: BP 134/84; PULSE 61; TEMP 36.7; O2SAT 99
[2018-06-08 15:51] VITALS: O2SAT 99
[2018-06-08 21:57] VITALS: O2SAT 94
[2018-06-08 22:36] VITALS: BP 155/96; PULSE 65; TEMP 36.7; O2SAT 98
[2018-06-09] MEDS: METRONIDAZOLE / NSS 500 MG in PREMIXED NSS 100 ML IV SCH ×2 (01:43→09:30)
[2018-06-09] MEDS: D5W AND 1/2NSS 1,000 ML IV SCH ×2 (01:44→14:25)
[2018-06-09 07:13] VITALS: BP 164/96; PULSE 64; TEMP 36.8; O2SAT 98
--- NOTE | 2018-06-09 07:53 | Surgery Progress Note ---
Surgery Progress Note Date of Service Jun 09, 2018. Subjective + feeling well, + bowel movement (loose), + diet (full liquid) Objective Vital Signs: Date Time Temp Pulse Resp B/P (MAP) Pulse Ox O2 Delivery O2 Flow Rate FiO2 06/09/18 07:13 36.8 64 16 164/96 (118) 98 Room Air 06/09/18 00:00 Room Air 06/08/18 22:36 36.7 65 16 155/96 (115) 98 Room Air 06/08/18 21:57 94 06/08/18 15:51 99 Room Air 06/08/18 15:30 36.7 61 16 134/84 (101) 99 Room Air 06/08/18 08:00 Room Air General Appearance: no apparent distress Abdomen: non distended, soft, + tenderness (minimal LLQ) Assessment & Plan diverticulitis with microperforation improving, advance to low fiber diet home on po abx if continues to do well outpatient colonoscopy
--- NOTE | 2018-06-09 08:13 | SURGERY PROGRESS NOTE ---
DATE: 06/09/2018 Courtney seems to be doing better in some ways and some ways may be deteriorating. She says she has a fullness in the suprapubic area when she urinates and more frequently feels pressure. She is passing a significant amount of flatus and some liquid stools. On examination, the abdomen is completely benign. Last vitals showed a temperature of 36.7, pulse 65, respirations 16, blood pressure 155/96, O2 sats 98 on room air. Laboratory yesterday showed her white count had pretty much normalized. No differential was obtained, so I doubt she had a left shift. Her potassium was 3.3. BUN is 7, creatinine 0.72. At this point, as I recommended her to go to a low-fiber diet. The pressure she is having in the bladder probably secondary to an inflammatory sigmoid colon adjacent to the bladder and this was explained to her. At this point, it should be worthwhile keeping her in here today to make sure that she is tolerating a low-fiber diet. I did advise her to continue to a low-fiber diet until her bowels moved completely or normalized and then at that time go to high-fiber diet. Upon discharge, she will need to have colonoscopy as an outpatient and I will leave it up to the tug master regarding the timing.
[2018-06-09] MEDS: CIPROFLOXACIN / D5W 400 MG in PREMIXED IN D5W 200 ML IV SCH (10:00)
--- NOTE | 2018-06-09 11:55 | DIAGNOSTIC IMAGING REPORT ---
KUB CLINICAL HISTORY: Abdominal Pain; Bloating nausea COMPARISON STUDY: No previous studies for comparison. FINDINGS: The soft tissues, psoas shadows, renal outlines and intestinal gas pattern appear normal. There is no evidence for bowel obstruction. No abnormal abdominal calcifications are seen. IMPRESSION: Normal study. The above report was generated using voice recognition software. It may contain grammatical, syntax or spelling errors. Electronically signed by: Kade Rojas M.D. 06/09/2018 11:54 AM Dictated Date/Time: 06/09/2018 11:53 AM
--- NOTE | 2018-06-09 14:53 | Hospitalist Progress Note ---
Hospitalist Progress Note Date of Service Jun 09, 2018. Subjective Pt evaluation today including: conversation w/ patient, conversation w/ family , physical exam, chart review, review of studies, review of inpatient medication list Patient seen and evaluated. No acute events overnight. She is having some increased abdominal bloating. Seems to be tolerating her diet and feels that eating isn't making the discomfort worse. Still with some pressure in the lower quadrants. Constitutional: No fever, No chills Respiratory: No cough, No shortness of breath Cardiovascular: No chest pain Abdomen: + diarrhea, No pain, No nausea, No vomiting, No constipation Musculoskeletal: No swelling, No calf pain Female : No dysuria Heme: No abnormal bleeding/bruising Medications Current Inpatient Medications Medications (Trade) Dose Ordered Sig/Lalito Route Start Time Stop Time Status Last Admin Dose Admin Ioversol (Optiray 320) 100 ml UD PRN IV 06/07/18 07:45 06/11/18 07:44 Acetaminophen (Tylenol Tab) 650 mg Q4H PRN PO 06/07/18 11:15 07/07/18 11:14 Magnesium Hydroxide (Milk Of Magnesia Susp) 30 ml Q6H PRN PO 06/07/18 11:15 07/07/18 11:14 Ondansetron HCl (Zofran Inj) 4 mg Q6H PRN IV 06/07/18 11:15 07/07/18 11:14 Ciprofloxacin/ Dextrose 400 mg/ Prmx 200 ml @ 100 mls/hr Q12H IV 06/07/18 22:00 06/17/18 21:59 06/09/18 10:00 100 MLS/HR Metronidazole 500 mg/Prmx 100 ml @ 100 mls/hr Q8H IV 06/07/18 18:00 06/17/18 17:59 06/09/18 09:30 100 MLS/HR Dextrose/Sodium Chloride 1,000 ml @ 125 mls/hr Q8H IV 06/07/18 13:45 07/07/18 13:44 06/09/18 14:25 125 MLS/HR Nicotine (Nicoderm Cq 7 Mg Patch) 1 patch QAM PRN TD 06/07/18 13:45 07/07/18 13:44 Miscellaneous (Remove Nicoderm Patch) 1 ea HS N/A 06/07/18 21:00 07/07/18 20:59 Morphine Sulfate (MoRPHine SULFATE INJ) 0.5 mg Q6H PRN IV 06/07/18 11:15 06/21/18 11:14 Ketorolac Tromethamine (Toradol Inj) 30 mg Q6H PRN IV 06/07/18 11:15 06/12/18 11:14 06/08/18 06:42 30 MG Objective Vital Signs Date Time Temp Pulse Resp B/P (MAP) Pulse Ox O2 Delivery O2 Flow Rate FiO2 06/09/18 08:00 Room Air 06/09/18 07:13 36.8 64 16 164/96 (118) 98 Room Air 06/09/18 00:00 Room Air 06/08/18 22:36 36.7 65 16 155/96 (115) 98 Room Air 06/08/18 21:57 94 06/08/18 15:51 99 Room Air 06/08/18 15:30 36.7 61 16 134/84 (101) 99 Room Air Physical Exam General Appearance: WD/WN, no apparent distress Eyes: sclerae normal ENT: hearing grossly normal Neck: supple, no JVD, trachea midline Respiratory/Chest: lungs clear, normal breath sounds, no respiratory distress, no accessory muscle use Cardiovascular: regular rate, rhythm Abdomen: normal bowel sounds, soft, + distended (remains soft but is slightly more distended), + tenderness (with palpation of the suprapubic region) Extremities: no pedal edema, no calf tenderness Neurologic/Psychiatric: alert, oriented x 3 Skin: normal color, warm/dry Assessment and Plan 52 y/o F who was admitted on 06/07 for acute diverticulitis Acute Sigmoid Diverticulitis with Microperf: IMPROVING - Ciprofloxacin 400 mg IV BID and Flagyl 500 mg IV Q8H and will convert to po on D/C - Monitoring with advancement to low-fiber diet given increased distention/ ongoing pressure - she feels it doesn't seem to worsen with eating at this time - hasn't required pain medication since early yesterday AM - Remains afebrile and leukocytosis is resolved - Gen Surg following - conservative measures at this time - recommending colonoscopy in 6-8 weeks pending resolution HTN: - Reports BP elevations as outpatient while ill with flu but hasn't had follow- up - BP has improved since admission - will continue to monitor and would recommend outpatient monitoring and can defer to PCP at this time Tobacco Use: - Nicotine PRN; working towards cessation and will continue to encourage DVT Prophylaxis: SCDs Code Status: FULL RESUSCITATION Disposition: Likely D/C tomorrow if diet is tolerated - Discussed with patient GI options - would be interested in seeing Dr. Colbert if insurance would cover Continued [facility] stay due to: multiple IV medications needed Discharge planning: home
--- NOTE | 2018-06-09 16:18 | Discharge Instructions ---
Discharge Instructions Date of Service Jun 09, 2018. Admission Reason for Admission: Diverticulitis Discharge Discharge Diagnosis / Problem: Diverticulitis Discharge Goals Goal(s): Decrease discomfort, Improve function, Increase independence Activity Recommendations Activity Limitations: per Instructions/Follow-up section Lifting Limitations: gradually increase as tolerated Exercise/Sports Limitations: gradually increase as tolerated Shower/Bathe: no limitations . Instructions / Follow-Up Instructions / Follow-Up Sigmoid Diverticulitis with Microperforations: - This is when small pouches at the end of the colon get infected. This pouches (diverticula) are rather common. For you, the image suggest that some of these small pouches may have ruptured which isn't uncommon. They typically seal off on their own and with antibiotics usually do not become a problem. - You will continue on antibiotics at this time: Start these tomorrow as you had your doses today in the hospital -- Ciprofloxacin 500 mg twice a day for 7 more days -- Flagyl 500 mg three times a day for 7 more days -- DO NOT DRINK ALCOHOL WHILE TAKING FLAGYL THIS MEDICATION INTERACTS WITH ALCOHOL AND CAN CAUSE SEVERE NAUSEA/VOMITING/WORSENING PAIN - Continue to follow a low fiber diet - please use the handouts and pamphlets provided for options with low fiber. After stool returns to normal then would recommend a good fiber diet. - You will need to have a colonoscopy in 6-8 weeks after your diverticulitis resolves. You were set up with an appointment with Dr. Aldrich with [facility] - You may use Toradol 10 mg every 4 hours as needed for pain. Can alternate with Tylenol if needed in between Toradol doses. Would avoid other forms of Ibuprofen if you take Toradol such as Motrin, Naproxyn, Ibuprofen, Advil, Aspirin since Toradol is similar to these medications. Toradol is not consider a narcotic or opiate pain medication. This medication typically will not make you drowsy but just see how you feel when taking it first. Blood Pressure: - You do have some higher readings every now and then during admission but the majority have been good. - Definitely would recommend to keep track of these. A lot of stores have blood pressure checks and write them down. Your family doctor may want to consider treatment versus just monitoring. - Some things you can do to help reduce blood pressure is to follow a low-salt diet, stay active (after you recover from diverticulitis), and maintain healthy diet/weight. Also find was to de-stress (sometimes is the hardest thing to do : ) ). One of the biggest things would be to completely quit smoking. Slowly reducing the amount you smoke can be a great option and can also talk to your family doctor about smoking cessation assistance. Sometimes good old genetics though can keep that pressure high so it is worth keeping track of. - Stress and Illness can definitely bring these blood pressure readings up so once you are feeling better it may be the best time to check your blood pressures. Follow-Up: "Please, follow up at [facility] with Smitha CASTANEDA on ThursdayJune 16 at 9:30 am. *If you need to change this appointment, call the office at [phone]. Please, follow up at [facility] with Dr. Nenita Aldrich on ThursdayJuly 27 at 9:00 am. *This office is located at [address] [place] [address] in [place]. If you need to change this appointment, call the office at [phone]." Current Hospital Diet Patient's current hospital diet: Low Fiber Diet Discharge Diet Recommended Diet: Low Fiber Diet Pending Studies Studies pending at discharge: no Medical Emergencies . Who to Call and When: Medical Emergencies: If at any time you feel your situation is an emergency, please call 911 immediately. . Non-Emergent Contact Non-Emergency issues call your: Primary Care Provider Call Non-Emergent contact if: you have a fever, your pain is concerning you, you have any medication questions . . "Provider Documentation" section prepared by Payton Loza. .
[2018-06-09 16:19] VITALS: BP 166/100; PULSE 62; TEMP 36.4; O2SAT 100
[2018-06-09] MEDS ORDERED: CPR500 PO (16:24)
[2018-06-09] MEDS ORDERED: MTR500 PO (16:24)
[2018-06-09] MEDS ORDERED: CIPROFLOXACIN 500 MG TAB PO ONE (18:00)
[2018-06-09] MEDS ORDERED: METRONIDAZOLE 500 MG TAB PO SCH (18:00)
[2018-06-09 18:25] VITALS: BP 170/96
[2018-06-09] MEDS ORDERED: KETO10TA PO (18:40)
[2018-06-09 19:00] VITALS: BP 170/96; PULSE 62; TEMP 36.4; O2SAT 100
--- NOTE | 2018-06-09 19:33 | Discharge Summary ---
Discharge Summary Date of Service Jun 09, 2018. Discharge Summary Admission Date: Jun 07, 2018 at 11:12 Discharge Date: Jun 09, 2018 Discharge Disposition: Home Principal Diagnosis: Acute Sigmoid Diverticulitis with Microperforation Problems/Secondary Diagnoses: 1. Elevated Blood Pressure Readings 2. Tobacco Use Procedures: ABDOMEN AND PELVIS CT WITH IV AND ORAL CONTRAST FINDINGS: Mild dependent subsegmental bibasilar atelectasis. Fissural lymph nodes are seen adjacent to the inferior aspect of the right major fissure. Imaged inferior cardiac chambers are unremarkable. Gallbladder, liver, spleen, pancreas and adrenal glands are unremarkable. The kidneys, ureters and bladder are within normal limits. Uterus and adnexa are within normal limits. Aorta and IVC are unremarkable. Patent portal vein. Mildly prominent nonenlarged periaortic lymph nodes measure up to 7 mm in short axis. There is no bowel obstruction. Oral contrast extends to the rectum. There is moderate to marked circumferential wall thickening about the mid sigmoid colon with inflammation about multiple colonic diverticula. Moderate pericolonic inflammation is noted with with thickening of the peritoneal reflections. There are a few scattered foci of extraluminal air within the adjacent sigmoid mesocolon, notably image 378 series 3. No drainable fluid collections. Terminal ileum and visualized appendix appear unremarkable. Soft tissues and breast parenchyma appear unremarkable. Bones appear intact. Moderate intervertebral disc space narrowing with disc osteophyte complex relation at L4-L5. Grade 1 anterolisthesis L5 on S1 with remote bilateral pars defects. IMPRESSION: 1. Acute complicated sigmoid diverticulitis with a few foci of extra luminal air within the adjacent sigmoid mesocolon compatible with microperforation. No drainable fluid collection. 2. No bowel obstruction. 3. Chronic bilateral pars defects at L5 with grade 1 anterolisthesis L5 on S1. Consultations: 1. General Surgery - Dr. Medeiros Medication Reconciliation New Medications: Ketorolac Tromethamine (Toradol) 10 Mg Tab 1 TAB PO Q6H PRN for Pain for 3 Days, #12 TAB Ciprofloxacin (Ciprofloxacin HCl) 500 Mg Tab 500 MG PO BID for 7 Days, #14 TAB Metronidazole (Metronidazole) 500 Mg Tab 500 MG PO TID for 7 Days, #21 TAB Discharge Exam REVIEW OF SYSTEMS Constitutional: No fever, No chills, No headache Respiratory: No cough, No shortness of breath Cardiovascular: No chest pain Abdomen: + pressure-like pain in lower quadrants, No nausea, No vomiting, No constipation Musculoskeletal: No swelling, No calf pain Female : No dysuria Heme: No abnormal bleeding/bruising PHYSICAL EXAMINATION: General Appearance: WD/WN, no apparent distress Eyes: sclerae normal ENT: hearing grossly normal Neck: supple, no JVD, trachea midline Respiratory/Chest: lungs clear, normal breath sounds, no respiratory distress, no accessory muscle use Cardiovascular: regular rate, rhythm Abdomen: normal bowel sounds, soft, + tenderness (with palpation of the suprapubic region); no guarding or rigidity to suggest acute abdomen Extremities: no pedal edema, no calf tenderness Neurologic/Psychiatric: alert, oriented x 3 Skin: normal color, warm/dry Hospital Course ADMISSION: 52 y/o F c/o abd pain. Pt states she started having LLQ abd pain on Thursday. It continued to worsen over the last few days and has moved to her entire lower abd. It does not radiate to the back. She has passed a few small pieces of stool, but her last regular bowel movement was on Thursday. No n/v. She has taken some PO, but has had no appetite due to the abd pain. She has never had pain like this prior. Nothing was helping her pain so she came to the ED. She tried taking ibuprofen without effect. Pt denies fever, SOB, chest pain, LE pain or swelling. She does feel bloated. She did note a small amount of blood in the small pieces of stool passed. Pt was given cipro/flagyl, IVF, and pain medications in the ED. She is still having pain, but it is overall improved. HOSPITAL COURSE: Acute Sigmoid Diverticulitis with Microperforation: IMPROVING - Abdomen remains benign; tolerated low fiber diet and continues to pass flatus ; still with more loose BMs; afebrile and leukocytosis resolved -- Still with some pressure-like discomfort in the lower abdomen but hasn't required pain medication since early 06/08 - Prescribed Ciprofloxacin 500 mg BID x 7 more days and Flagyl 500 mg TID x 7 more days to treat for a total of 10 days - Gen Surg followed - conservative measures and recommending outpatient colonoscopy after resolution of symptoms - Appt established with Dr. Aldrich in July - PCP F/U on 16 June High Blood Pressure: - It appears she had an elevated BP reading as an outpatient when she was sick with viral illness/influenza. - Had a long conversation with Ms. Díaz as she largely had good reading in hospital but when discussing discharge and some social stressors currently. I feel the best approach is monitoring at this point. Given illness, stress, IVFs , etc there is multiple reasons for an elevated reading. She is asymptomatic with her BP. Recommended some tips for reduction of blood pressure in D/C instructions as well as recommended monitoring and keeping a log to take to her PCP. At this point, overtreating a couple readings in an acute setting with illness may be more harm then good but definitely should be followed. Tobacco Use: - Working towards cessation and will continue to encourage Total Time Spent: Greater than 30 minutes This includes examination of the patient, discharge planning, medication reconciliation, and communication with other providers. Discharge Instructions Please refer to the electronic Patient Visit Report (Discharge Instructions) for additional information. Additional Copies To Smitha Valdivia; Nenita Aldrich,
[2018-06-10] MEDS ORDERED: CIPROFLOXACIN 500 MG TAB PO SCH (09:00)
== END 2018-06-09 19:10 | disposition home or self-care (01) | DRG 392 ==
LOC: C.EDB 07:21 → C.MED 11:12 → ENRESERV 12:08 → C.MS2W 22:15
PROVIDERS: ADMIT Family Medicine; ATTEND Internal Medicine
DX: K57.20 Diverticulitis of large intestine with perforation and abscess without bleeding (principal); R03.0 Elevated blood-pressure reading, without diagnosis of hypertension; F17.200 Nicotine dependence, unspecified, uncomplicated

== ENCOUNTER → 2018-06-16 | Outpatient (CLI) | payer BC ==
[~2018-06-16] MED LIST: CPR500 PO; MTR500 PO
== END | disposition home or self-care (01) ==
LOC: C.LABSPEC 10:34
PROVIDERS: ATTEND Nurse Practitioner Family
DX: R19.7 Diarrhea, unspecified (principal)